=== PATIENT | female | born 1945 | race Caucasian/White ===

== ENCOUNTER → 2017-02-17 | Outpatient (CLI) | payer MEDICAID, MEDICARE ==
[~2017-02-17] MED LIST: ALBU8.5H8 INH; ASPI-496 PO; BUTA-177 PO; HYDR-3245 PO; LISI30TA4 PO; MOME110A2 INH; SIMV40TA PO
[2017-02-17 15:05] LABS: BLOOD UREA NITROGEN 11 mg/dL (7-18)
[2017-02-17 15:06] LABS: HEMATOCRIT 16.8 % (34.6-47.8); HEMOGLOBIN 4.9 g/dL (11.7-16.4); WHITE BLOOD COUNT 5.8 x10^3/uL (3.4-10)
[2017-02-17 15:09] LABS: ASPARTATE AMINO TRANSFERASE 30 U/L (15-37)
== END | disposition home or self-care (01) ==
LOC: LAB 14:24
PROVIDERS: ATTEND Internal Medicine
DX: E11.9 Type 2 diabetes mellitus without complications (principal); I10 Essential (primary) hypertension; E78.5 Hyperlipidemia, unspecified; Z98.890 Other specified postprocedural states
CPT/HCPCS: 36415; 80053; 80061; 82043; 83036; 85027

== ENCOUNTER 2017-02-21 14:50 | Inpatient (IN) | payer MEDICARE ==
[2017-02-21] VITALS (12 sets, daily range): BP systolic 105–187; BP diastolic 61–77
[~2017-02-21] VITALS: Ht 172.7 cm; Wt 66.5 kg
[2017-02-21] MEDS ORDERED: SODIUM CHLORIDE FLUSH 10ML SYR IVF ONE (15:30)
[2017-02-21] MEDS ORDERED: SIMV40TA PO (15:32)
[2017-02-21] MEDS ORDERED: LISI30TA4 PO (15:32)
[2017-02-21] MEDS ORDERED: ASPI-496 PO (15:32)
[2017-02-21] MEDS ORDERED: BUTA-177 PO (15:45)
[2017-02-21] MEDS ORDERED: HYDR-3245 PO (15:45)
[2017-02-21 16:02] LABS: IS PT STATUS REG ER OR PRE ER? YES
[2017-02-21] MEDS ORDERED: DILTIAZEM 5 MG/ML, 5ML ONE (17:14)
[2017-02-21] MEDS ORDERED: NICOTINE 21 MG/24 HR PATCH.TD24 ONE (17:17)
[2017-02-21] MEDS ORDERED: ASPIRIN 81 MG TABLET CHEW ONE (17:17)
[2017-02-21] MEDS ORDERED: DILTIAZEM 5 MG/ML, 5ML IV ONE (17:30)
[2017-02-21] MEDS ORDERED: NICOTINE 21 MG/24 HR PATCH.TD24 TD ONE (17:30)
[2017-02-21] MEDS ORDERED: ASPIRIN 81 MG TABLET CHEW PO ONE (17:30)
[2017-02-21] MEDS ORDERED: DILTIAZEM 5 MG/ML, 5ML IVPush PRN (18:30)
[2017-02-21] MEDS ORDERED: ONDANSETRON ODT 4 MG PO PRN (18:30)
[2017-02-21] MEDS ORDERED: HYDROcodone/APAP 10/325 MG TABLET PO PRN (19:00)
[2017-02-21] MEDS ORDERED: FUROSEMIDE 40 MG/4 ML IV ONE (19:30)
[2017-02-21] MEDS ORDERED: SIMVASTATIN 40 MG TABLET PO SCH (21:00)
[2017-02-21 21:47] LABS: HEMATOCRIT 22.5 % (34.6-47.8); HEMOGLOBIN 6.7 g/dL (11.7-16.4)
[2017-02-21] MEDS ORDERED: ALBU8.5H8 INH (21:56)
[2017-02-21] MEDS ORDERED: MOME110A2 INH (21:56)
[2017-02-21 21:57] LABS: IS PT STATUS REG ER OR PRE ER? NO
[2017-02-21] MEDS: LABETALOL 5MG/ML, 20ML IVPush PRN (22:07)
[2017-02-21] MEDS: NICOTINE 21 MG/24 HR PATCH.TD24 TD SCH (22:55)
[2017-02-21] MEDS: LISINOPRIL 5 MG TABLET PO SCH (23:47)
[2017-02-21] MEDS: ATORVASTATIN 20 MG TABLET PO SCH (23:58)
[2017-02-22] VITALS (14 sets, daily range): BP systolic 157–190; BP diastolic 60–76
[2017-02-22] MEDS: HYDROcodone/APAP 10/325 MG TABLET PO PRN ×3 (01:13→09:08)
[2017-02-22] MEDS ORDERED: OMNIPAQUE 350 MG/ML, 100ML BOTTLE ONE (03:42)
[2017-02-22] MEDS: BUTALB/APAP/CAFFEINE 50MG/325MG/40MG PO PRN ×2 (06:08→16:25)
[2017-02-22] MEDS: LABETALOL 5MG/ML, 20ML IVPush PRN (06:45)
[2017-02-22 07:38] LABS: HEMATOCRIT 25.2 % (34.6-47.8); HEMOGLOBIN 7.9 g/dL (11.7-16.4)
[2017-02-22 07:41] LABS: BLOOD UREA NITROGEN 11 mg/dL (7-18)
[2017-02-22 07:52] LABS: IS PT STATUS REG ER OR PRE ER? NO
[2017-02-22 08:25] LABS: FERRITIN 3.7 ng/mL (8-252)
[2017-02-22 08:42] LABS: DIFF TOTAL CELLS COUNTED 100 CELL DIFF
[2017-02-22 08:44] LABS: VERIFY COUNTS? YES
[2017-02-22 08:45] LABS: ANISOCYTOSIS 2+; MICROCYTOSIS 2+
[2017-02-22 08:46] LABS: HYPOCHROMIA 1+; POLYCHROMASIA 1+
[2017-02-22 08:47] LABS: OVALOCYTES 1+; POIKILOCYTOSIS 1+
[2017-02-22 08:48] LABS: SCHISTOCYTES 1+
[2017-02-22] MEDS: PROAIR INH SCH ×2 (09:00→21:48)
[2017-02-22] MEDS: ASMANEX INH SCH ×2 (09:00→21:00)
[2017-02-22] MEDS ORDERED: LISINOPRIL 5 MG TABLET PO SCH (09:00)
[2017-02-22] MEDS: methylPREDNISolone SOD SUCC 40 MG/ML IV SCH ×4 (09:08→21:48)
[2017-02-22] MEDS: FUROSEMIDE 40 MG/4 ML IV SCH ×2 (09:08→16:27)
[2017-02-22] MEDS: HYDROcodone/APAP 5/325 TABLET PO PRN ×3 (13:09→22:47)
[2017-02-22] MEDS: NICOTINE 21 MG/24 HR PATCH.TD24 TD SCH (15:41)
[2017-02-22] MEDS ORDERED: FLU VACC QS2016-17 (36MOS+)UP/PF 0.5 ML IM-VACC ONE (20:30)
[2017-02-22] MEDS: ATORVASTATIN 20 MG TABLET PO SCH (21:47)
[2017-02-22] MEDS: LISINOPRIL 5 MG TABLET PO SCH (21:47)
[2017-02-23] MEDS: LABETALOL 5MG/ML, 20ML IVPush PRN ×2 (00:05→18:06)
[2017-02-23] MEDS: DOCUSATE 100 MG CAPSULE PO PRN ×2 (00:10→22:26)
[2017-02-23] MEDS: BUTALB/APAP/CAFFEINE 50MG/325MG/40MG PO PRN ×2 (00:10→11:37)
[2017-02-23 02:05] VITALS: BP 182/80
[2017-02-23] MEDS: hydrALAzine 20 MG/ML, 1ML IV PRN ×2 (02:12→22:45)
[2017-02-23 02:50] VITALS: BP 168/65
[2017-02-23] MEDS: HYDROcodone/APAP 5/325 TABLET PO PRN ×5 (02:56→22:26)
[2017-02-23] MEDS: methylPREDNISolone SOD SUCC 40 MG/ML IV SCH ×4 (04:15→22:26)
[2017-02-23 05:03] LABS: HEMATOCRIT 25.7 % (34.6-47.8); HEMOGLOBIN 8.1 g/dL (11.7-16.4); WHITE BLOOD COUNT 3.7 x10^3/uL (3.4-10)
[2017-02-23 05:39] LABS: BLOOD UREA NITROGEN 16 mg/dL (7-18)
[2017-02-23] MEDS: FUROSEMIDE 40 MG/4 ML IV SCH ×2 (07:30→16:35)
[2017-02-23 08:16] VITALS: BP 139/82
[2017-02-23] MEDS: PROAIR INH SCH ×2 (08:16→20:06)
[2017-02-23] MEDS: ASMANEX INH SCH ×2 (08:16→20:06)
[2017-02-23] MEDS ORDERED: AZITHROMYCIN 500 MG TABLET PO ONE (09:00)
[2017-02-23] MEDS: NICOTINE 21 MG/24 HR PATCH.TD24 TD SCH (17:06)
[2017-02-23 18:02] VITALS: BP 198/76
[2017-02-23 19:40] VITALS: BP 188/76
[2017-02-23] MEDS: ATORVASTATIN 20 MG TABLET PO SCH (20:05)
[2017-02-23] MEDS: LISINOPRIL 5 MG TABLET PO SCH (20:06)
[2017-02-23 22:40] VITALS: BP 187/76
[2017-02-24] MEDS ORDERED: ENALAPRILAT 1.25 MG/ML, 2ML IV ONE (01:00)
[2017-02-24 01:07] VITALS: BP 181/71
[2017-02-24 02:30] VITALS: BP 175/68
[2017-02-24] MEDS: HYDROcodone/APAP 5/325 TABLET PO PRN ×5 (02:33→20:35)
[2017-02-24] MEDS: methylPREDNISolone SOD SUCC 40 MG/ML IV SCH ×4 (04:08→21:56)
[2017-02-24] MEDS: hydrALAzine 20 MG/ML, 1ML IV PRN (04:09)
[2017-02-24 04:38] LABS: HEMATOCRIT 27.4 % (34.6-47.8); HEMOGLOBIN 8.4 g/dL (11.7-16.4); WHITE BLOOD COUNT 6.7 x10^3/uL (3.4-10)
[2017-02-24 04:47] LABS: BLOOD UREA NITROGEN 21 mg/dL (7-18)
[2017-02-24 05:13] LABS: ANISOCYTOSIS 1+; HYPOCHROMIA 1+; MICROCYTOSIS 1+; POLYCHROMASIA 1+
[2017-02-24 05:14] LABS: POIKILOCYTOSIS 1+
[2017-02-24] MEDS: FUROSEMIDE 40 MG/4 ML IV SCH ×2 (07:40→16:40)
[2017-02-24] MEDS: AZITHROMYCIN 250 MG TABLET PO SCH (07:40)
[2017-02-24] MEDS: ASMANEX INH SCH ×2 (07:41→21:00)
[2017-02-24] MEDS: PROAIR INH SCH ×2 (07:41→21:00)
[2017-02-24 08:57] VITALS: BP 179/76
[2017-02-24] MEDS: BUTALB/APAP/CAFFEINE 50MG/325MG/40MG PO PRN ×2 (08:58→16:40)
[2017-02-24] MEDS ORDERED: DILTIAZEM 5 MG/ML, 5ML IVPush ONE (11:00)
[2017-02-24] MEDS: DILTIAZEM 120 MG CAP.ER.12H PO SCH ×2 (13:00→20:36)
[2017-02-24 13:25] VITALS: BP 149/79
[2017-02-24] MEDS: CARVEDILOL 6.25 MG TABLET PO SCH (17:58)
[2017-02-24] MEDS: NICOTINE 21 MG/24 HR PATCH.TD24 TD SCH (17:59)
[2017-02-24 18:47] VITALS: BP 137/61
[2017-02-24] MEDS: ATORVASTATIN 20 MG TABLET PO SCH (21:56)
[2017-02-24] MEDS: LISINOPRIL 5 MG TABLET PO SCH (21:56)
[2017-02-25] MEDS: HYDROcodone/APAP 5/325 TABLET PO PRN ×2 (00:18→04:56)
[2017-02-25] MEDS: hydrALAzine 20 MG/ML, 1ML IV PRN (00:37)
[2017-02-25 00:50] VITALS: BP_SYST 185; BP_SYST 189; BP_DIAS 69; BP_DIAS 78
[2017-02-25 02:13] VITALS: BP 155/66
[2017-02-25] MEDS: methylPREDNISolone SOD SUCC 40 MG/ML IV SCH ×2 (03:51→08:26)
[2017-02-25 05:08] LABS: BLOOD UREA NITROGEN 29 mg/dL (7-18)
[2017-02-25 05:15] LABS: HEMATOCRIT 27.9 % (34.6-47.8); HEMOGLOBIN 8.6 g/dL (11.7-16.4); WHITE BLOOD COUNT 6.2 x10^3/uL (3.4-10)
[2017-02-25 08:23] VITALS: BP_SYST 201; BP_SYST 204; BP_DIAS 81; BP_DIAS 89
[2017-02-25] MEDS: FUROSEMIDE 40 MG/4 ML IV SCH (08:25)
[2017-02-25] MEDS: CARVEDILOL 6.25 MG TABLET PO SCH (08:25)
[2017-02-25] MEDS: AZITHROMYCIN 250 MG TABLET PO SCH (08:25)
[2017-02-25] MEDS: DILTIAZEM 120 MG CAP.ER.12H PO SCH (08:26)
[2017-02-25] MEDS: LABETALOL 5MG/ML, 20ML IVPush PRN (08:38)
[2017-02-25] MEDS: ASMANEX INH SCH (08:41)
[2017-02-25] MEDS: PROAIR INH SCH (08:41)
[2017-02-25 09:58] VITALS: BP_SYST 162; BP_SYST 165; BP_DIAS 88; BP_DIAS 89
== END 2017-02-25 10:22 | disposition left against medical advice (07) | DRG 811 ==
LOC: ED 16:57 → EDIP 18:18 → 5SO 20:29
PROVIDERS: ADMIT Internal Medicine; ATTEND Internal Medicine
PROC: 30233N1 Transfusion of Nonautologous Red Blood Cells into Peripheral Vein, Percutaneous Approach (ICD-10-PCS; principal; 2017-02-21)
DX: D50.0 Iron deficiency anemia secondary to blood loss (chronic) (principal); I50.31 Acute diastolic (congestive) heart failure; D68.69 Other thrombophilia; J44.9 Chronic obstructive pulmonary disease, unspecified; I48.91 Unspecified atrial fibrillation; I50.9 Heart failure, unspecified; I11.0 Hypertensive heart disease with heart failure; E11.9 Type 2 diabetes mellitus without complications; E78.5 Hyperlipidemia, unspecified; F17.210 Nicotine dependence, cigarettes, uncomplicated; I16.0 Hypertensive urgency; D50.9 Iron deficiency anemia, unspecified; K59.09 Other constipation; I44.0 Atrioventricular block, first degree; M19.90 Unspecified osteoarthritis, unspecified site; Z53.29 Procedure and treatment not carried out because of patient's decision for other reasons; Z53.21 Procedure and treatment not carried out due to patient leaving prior to being seen by health care provider; Z82.49 Family history of ischemic heart disease and other diseases of the circulatory system; Z98.84 Bariatric surgery status; Z88.0 Allergy status to penicillin; Z88.2 Allergy status to sulfonamides; Z88.1 Allergy status to other antibiotic agents; Z88.8 Allergy status to other drugs, medicaments and biological substances
CPT/HCPCS: 36415; 71010; 71275; 80048; 82728; 83540; 83550; 83735; 83880; 84100; 84439; 84443; 84484; 85014; 85018; 85025; 85045; 85379; 85610; 85730; 86850; 86900; 86923; 90686; 93005; 93306; 93970; 96374; J1940; Q9967; J0360; J2920; P9016

== ENCOUNTER → 2017-12-01 | Outpatient (CLI) | payer MEDICARE, MEDICAID ==
[~2017-12-01] MED LIST changes: +AMLO5TAB2 PO; +ASCO500T12 PO; +CALC250T PO; +CARV25TA12 PO; +CYAN25009 PO; +DOCU100T6 PO; +FERR325T18 PO; +HYDR-3343 PO; +LACT1CAP5 PO; +LISI-170 PO; +MULT-326 PO; +PREDNISOLONE 1% LEFTEYE; +SENN-99 PO; +TOBR5DRO14 LEFTEYE; +Vitamin B Complex SL; +[UNRECOGNIZED DRUG - OTHER] EACHEYE
[2017-12-01 11:10] LABS: ANION GAP 7 mmol/L (5-15); CALCIUM 8.9 mg/dL (8.5-10.1); CHLORIDE 110 mmol/L (98-107)
[2017-12-01 11:11] LABS: CREATININE 0.97 mg/dL (0.55-1.02)
[2017-12-01 12:45] LABS: HEMOGRAM NOTE RECHECKED; MEAN CORPUSCULAR HEMOGLOBIN 28.5 pg (27.0-34.8); MEAN CORPUSCULAR HGB CONC 33.6 g/dL (32.4-35.8); MEAN CORPUSCULAR VOLUME 84.8 fL (80-100); MEAN PLATELET VOLUME 7.6 fL (7.4-10.4); PLATELET COUNT 172 x10^3/uL (130-400); RED BLOOD COUNT 4.66 x10^6/uL (3.82-5.3); RED CELL DISTRIBUTION WIDTH 26.8 % (9.6-15.2)
== END | disposition home or self-care (01) ==
LOC: LAB 10:40
PROVIDERS: ATTEND Internal Medicine
DX: D64.9 Anemia, unspecified (principal); N28.9 Disorder of kidney and ureter, unspecified
CPT/HCPCS: 36415; 80048; 85027

== ENCOUNTER 2018-06-02 15:05 | Inpatient (IN) | payer MEDICARE, MEDICAID ==
[~2018-06-02] VITALS: Ht 167.6 cm; Wt 76.7 kg
[~2018-06-02 15:05] MED LIST changes: +AMLO-150 PO; -AMLO5TAB2 PO; +ETOMIDATE 20 MG/10 ML ONE; +PROPOFOL 10 MG/ML, 100ML IV ONE; +PROPOFOL 10 MG/ML, 20ML ONE; +ROCURONIUM 10MG/ML,5ML ONE
--- NOTE | 2018-06-02 15:07 | NUR ---
PT TO RADIOLOGY VIA EMS GURNEY FOR STAT HEAD CT FOLLOWING ED MD ASSESSMENT. ED RN/UPPER CUTTER MACHINE TO ACCOMPANY.
--- NOTE | 2018-06-02 15:18 | NUR ---
PT BACK FROM RADIOLOGY. CONTINOUOS SPO2 AND CARDIAC MONITORING IN PLACE.
[2018-06-02 15:33] LABS: BASOPHILS # (AUTO) 0.08 x10^3/uL (0-0.1); BASOPHILS % (AUTO) 1 % (0-1); EOSINOPHILS # (AUTO) 1.28 x10^3/uL (0-0.4); EOSINOPHILS % (AUTO) 15 % (1-7); LYMPHOCYTES # (AUTO) 1.46 x10^3/uL (1-3.4); LYMPHOCYTES % (AUTO) 17 % (22-44); MD NO; MEAN CORPUSCULAR HEMOGLOBIN 31.3 pg (27.0-34.8); MEAN CORPUSCULAR HGB CONC 33.2 g/dL (32.4-35.8); MEAN CORPUSCULAR VOLUME 94.4 fL (80-100); MONOCYTES # (AUTO) 0.78 x10^3/uL (0.2-0.8); MONOCYTES % (AUTO) 9 % (2-9); NEUTROPHILS # (AUTO) 5.22 x10^3/uL (1.8-6.8); NEUTROPHILS % (AUTO) 59 % (42-75); PLATELET COUNT 200 x10^3/uL (130-400); RED BLOOD COUNT 4.42 x10^6/uL (3.82-5.3); RED CELL DISTRIBUTION WIDTH 14.8 % (9.6-15.2)
--- NOTE | 2018-06-02 15:37 | NUR ---
Referral to [facility]. Case # [id number].
[2018-06-02] MEDS ORDERED: PROPOFOL 100 ML IV PRN ×2 (15:40→16:26)
[2018-06-02] MEDS ORDERED: FENTANYL PF 100 MCG/2ML ONE (15:41)
[2018-06-02] MEDS ORDERED: ETOMIDATE 20 MG/10 ML IV ONE (16:00)
[2018-06-02] MEDS ORDERED: FENTANYL PF 100 MCG/2ML IVP ONE (16:00)
[2018-06-02] MEDS ORDERED: PROPOFOL 10 MG/ML, 20ML IVP ONE (16:00)
[2018-06-02] MEDS ORDERED: ENALAPRILAT 1.25 MG/ML, 2ML ONE (16:05)
[2018-06-02 16:12] LABS: PROTHROMBIN TIME 10.6 Seconds (9.6-11.5)
--- NOTE | 2018-06-02 16:13 | NUR ---
PT HAVING INTERMITTENT RUNS OF TACHYCARDIA. HR AT 188, ED MD MADE AWARE. TACHYCARDIA RESOLVED SPONTANEOUSLY.
[2018-06-02] MEDS ORDERED: hydrALAzine 20 MG/ML, 1ML ONE (16:15)
--- NOTE | 2018-06-02 16:24 | NUR ---
PER NEUROLOGIST, DR. ACOSTA, RESTART PROPOFOL, TITRATE UP TO ASSIST WITH PRESSURE CONTROL. RESPIRATORY PAGED TO INCREASE PT'S RATE.
--- NOTE | 2018-06-02 16:28 | NUR ---
I CONTACTED RN LIAISON, MARIO. PT PROGNOSIS DISCUSSED. MARIO TO COME CONSULT WITH FAMILY
[2018-06-02] MEDS ORDERED: BISACODYL 10 MG SUPP PR PRN (16:30)
[2018-06-02] MEDS ORDERED: INSTRUCTION SEE COMMENTS XX ONE (16:30)
[2018-06-02] MEDS ORDERED: DEXTROSE 4 GM TAB.CHEW PO PRN (16:30)
[2018-06-02] MEDS ORDERED: POLYETHYLENE GLYCOL 17 GM PACKET PO PRN (16:30)
[2018-06-02] MEDS ORDERED: ENALAPRILAT 1.25 MG/ML, 2ML IV ONE (16:30)
[2018-06-02] MEDS ORDERED: ACETAMINOPHEN 325 MG TABLET PO PRN (16:30)
[2018-06-02] MEDS ORDERED: ENALAPRILAT 1.25 MG/ML, 2ML IV PRN (16:30)
[2018-06-02] MEDS ORDERED: GLUCAGON 1 MG IM PRN (16:30)
[2018-06-02] MEDS ORDERED: PHARMACY MAY ADJ FOR RENAL FX MC SCH (16:30)
[2018-06-02] MEDS ORDERED: FENTANYL PF 100 MCG/2ML IVPush PRN (16:30)
[2018-06-02] MEDS ORDERED: hydrALAzine 20 MG/ML, 1ML IV ONE (16:30)
[2018-06-02] MEDS ORDERED: LABETALOL 5MG/ML, 20ML IVPush ONE (16:30)
[2018-06-02] MEDS ORDERED: ALBUTEROL/IPRATROPIUM 2.5MG/0.5MG, 3 ML INLINE SCH (16:30)
[2018-06-02] MEDS ORDERED: DEXTROSE 50%, 50ML SYRINGE IVPush PRN (16:30)
[2018-06-02] MEDS ORDERED: LIDOCAINE-MPF 1%, 2ML ENDO PRN (16:30)
[2018-06-02] MEDS ORDERED: DOCUSATE 100 MG CAPSULE PO PRN (16:30)
[2018-06-02] MEDS ORDERED: MANNITOL 0.25 GM/ML, 50ML IVPush STA (16:32)
--- NOTE | 2018-06-02 16:40 | NUR ---
SW AT BEDSIDE
[2018-06-02] MEDS ORDERED: SODIUM CHLORIDE 3% 500 ML IV PRN (17:00)
--- NOTE | 2018-06-02 17:00 | NUR ---
MULTIPLE FAMILY MEMBERS AT BEDSIDE. POC TO EXTUBATE PT ONCE ADDITIONAL FAMILY MEMBERS ARRIVE
[2018-06-02 17:17] VITALS: BP 138/52
[2018-06-02] MEDS ORDERED: FENTANYL PF 2,500 MCG in SODIUM CHLORIDE 0.9% 200 ML IV PRN (17:30)
[2018-06-02] MEDS ORDERED: MANNITOL 0.25 GM/ML, 50ML IVPush SCH (21:00)
[2018-06-02] MEDS ORDERED: INSULIN LISPRO 100 UNITS/ML, PEN SQ-INSULIN SCH (21:00)
[2018-06-02] MEDS ORDERED: SODIUM CHLORIDE FLUSH 10ML SYR IVF SCH (21:00)
[2018-06-02] MEDS ORDERED: NOREPINEPHRINE 4 MG in SODIUM CHLORIDE 0.9% 246 ML IV PRN (22:30)
[2018-06-02] MEDS ORDERED: SODIUM CHLORIDE 0.9% 1,000 ML IV SCH (22:30)
[2018-06-02] MEDS ORDERED: SODIUM CHLORIDE 0.9%, 500ML IVBOLUS ONE (22:30)
[2018-06-02] MEDS ORDERED: SODIUM CHLORIDE 0.9%, 500ML IVBOLUS PRN (22:30)
[2018-06-02] MEDS ORDERED: morphine SULFATE 10 MG/ML, 1ML IVPush PRN ×2 (22:30)
[2018-06-02] MEDS ORDERED: ATROPINE OPHTH SOLN 1%, 5ML PO PRN (22:30)
[2018-06-02] MEDS ORDERED: LORazepam 2 MG/ML, 1ML IVPush PRN ×2 (22:30)
== END 2018-06-02 23:32 | disposition expired | DRG 208 ==
LOC: ED 15:15 → EDIP 15:48 → ICU 17:48
PROVIDERS: ADMIT Hospitalist; ATTEND Hospitalist
PROC: 5A1935Z Respiratory Ventilation, Less than 24 Consecutive Hours (ICD-10-PCS; principal; 2018-06-02)
PROC: 0BH17EZ Insertion of Endotracheal Airway into Trachea, Via Natural or Artificial Opening (ICD-10-PCS; 2018-06-02)
DX: J96.00 Acute respiratory failure, unspecified whether with hypoxia or hypercapnia (principal); I61.5 Nontraumatic intracerebral hemorrhage, intraventricular; G91.1 Obstructive hydrocephalus; G93.40 Encephalopathy, unspecified; I16.1 Hypertensive emergency; Z99.11 Dependence on respirator [ventilator] status; E11.9 Type 2 diabetes mellitus without complications; F17.210 Nicotine dependence, cigarettes, uncomplicated; I10 Essential (primary) hypertension; Z51.5 Encounter for palliative care; Z66 Do not resuscitate; Z82.49 Family history of ischemic heart disease and other diseases of the circulatory system; Z83.3 Family history of diabetes mellitus; Z88.0 Allergy status to penicillin; Z88.2 Allergy status to sulfonamides; Z88.1 Allergy status to other antibiotic agents; Z88.8 Allergy status to other drugs, medicaments and biological substances
CPT/HCPCS: 36415; 36600; 70450; 71045; 80047; 82803; 85025; 85610; 85730; 87070; 87077; 87081; 87186; 87205; 93005; 94002; 96365; 96366; 96368; 96375; G0378; J2704; J3010; J7060; J0360; J2060; J2270; J7050